=== PATIENT | female | born 1960 | race Caucasian/White ===

== ENCOUNTER 2017-06-10 08:03 | Day surgery (SDC) | payer OTHER ==
[~2017-06-10] VITALS: Ht 160 cm; Wt 108.9 kg
[~2017-06-10 08:03] MED LIST: ADVAIR 100/501 DISK IH; FLEXERIL10 MG PO; HYZAAR 100-21 TABLET PO; KLONOPIN0.5 M1 PO; MS CONTIN,ORAMO60 MG PO; NEURONTIN300 MG PO; PRAVACHOL20 MG PO; PROVENTIL,2.5 MG/3 M IH; ROXICODONE30 MG PO; VENTOLIN HFA18 GM IH
[2017-06-10 08:50] VITALS: BP 116/66
[2017-06-10 09:05] LABS: INTER. NORMALIZED RATIO 1.1
[2017-06-10 09:08] LABS: PTT 30.2 SEC (25-37)
[2017-06-10 14:35] VITALS: BP 124/61
[2017-06-10 15:25] VITALS: BP 109/53
[2017-06-10 17:40] VITALS: BP 117/67
== END 2017-06-10 18:10 | disposition home or self-care (01) ==
LOC: SDC 08:03
PROVIDERS: Thoracic Surgery (Cardiothoracic Vascular Surgery)
DX: C34.31 Malignant neoplasm of lower lobe, right bronchus or lung (principal); C77.1 Secondary and unspecified malignant neoplasm of intrathoracic lymph nodes; C78.1 Secondary malignant neoplasm of mediastinum; J43.9 Emphysema, unspecified; F17.210 Nicotine dependence, cigarettes, uncomplicated; G89.29 Other chronic pain; M54.9 Dorsalgia, unspecified; Z86.718 Personal history of other venous thrombosis and embolism; Z82.3 Family history of stroke; Z82.0 Family history of epilepsy and other diseases of the nervous system; Z83.49 Family history of other endocrine, nutritional and metabolic diseases; Z80.8 Family history of malignant neoplasm of other organs or systems
CPT/HCPCS: 85610; 85730; 86850; 86900; 86901; 88305; 88341 TC; 88342 TC; 93005; J0330; J0690; J1170

== ENCOUNTER 2017-06-20 15:26 | Emergency (ER) | payer OTHER ==
[~2017-06-20] VITALS: Ht 162.6 cm; Wt 109.9 kg
[2017-06-20 16:36] LABS: HEMOGLOBIN 12.5 G/DL (11.9-15.5); MCH 27.8 PG (29.0-34.0); MCHC 32.9 G/DL (30.0-36.0); MCV 84.4 FL (83-99); PLATELET COUNT 311 K/uL (156-360); WHITE BLOOD COUNT 10.7 K/uL (4.1-10.2)
[2017-06-20 16:45] LABS: CHLORIDE 95 mEq/L (99-109); POTASSIUM 3.8 mEq/L (3.7-5.4)
[2017-06-20 16:46] LABS: SODIUM 136 mEq/L (136-147)
[2017-06-20 16:47] LABS: GLUCOSE 96 mg/dL (70-99)
[2017-06-20 16:51] LABS: CREATININE 0.9 mg/dL (0.6-1.3); GFR ESTIMATE (CALCULATED) > 59 mL/min/
[2017-06-20 16:52] LABS: UREA NITROGEN (BUN) 15 mg/dL (9-23)
[2017-06-20] MEDS ORDERED: DUONEB 2.5-0.5 M3 ML AEROSOL (17:53)
[2017-06-20 19:29] VITALS: BP 155/70
== END 2017-06-20 19:32 | disposition home or self-care (01) ==
LOC: EME 15:26
PROVIDERS: Emergency Medicine Emergency Medical Services
DX: J44.1 Chronic obstructive pulmonary disease with (acute) exacerbation (principal); C34.91 Malignant neoplasm of unspecified part of right bronchus or lung; R09.02 Hypoxemia; G89.3 Neoplasm related pain (acute) (chronic); K21.9 Gastro-esophageal reflux disease without esophagitis; I10 Essential (primary) hypertension; Z79.891 Long term (current) use of opiate analgesic; F17.200 Nicotine dependence, unspecified, uncomplicated; Z88.1 Allergy status to other antibiotic agents
CPT/HCPCS: 71046; 80048; 85027; 85379; 94640; 99281; 99285; J2270

== ENCOUNTER 2017-06-22 13:57 | Inpatient (IN) | payer OTHER ==
[2017-06-22] VITALS (12 sets, daily range): BP systolic 120–153; BP diastolic 70–557
[~2017-06-22] VITALS: Ht 165.1 cm; Wt 123.3 kg
[~2017-06-22 13:57] MED LIST changes: +DUONEB 2.5-0.5 M3 ML AEROSOL
[2017-06-22 14:21] LABS: BASOPHIL (%) 0.7 % (0-1); BASOPHIL COUNT 0.1 K/uL (0-0.1); EOSINOPHIL (%) 0.9 % (0-5); EOSINOPHIL COUNT 0.1 K/uL (0-0.3); HEMATOCRIT 39.2 % (36.0-46.0); HEMOGLOBIN 12.2 G/DL (11.9-15.5); IMMATURE GRANULOCYTE (%) 4.4 % (0.0-0.7); LYMPHOCYTE (%) 27.7 % (15-42); LYMPHOCYTE COUNT 3.9 K/uL (1.0-2.8); MCH 27.4 PG (29.0-34.0); MCHC 31.1 G/DL (30.0-36.0); MCV 88.1 FL (83-99); MONOCYTE (%) 7.1 % (3-12); NEUTROPHIL (%) 59.2 % (45-76); NEUTROPHIL COUNT 8.3 K/uL (1.8-6.4); NRBC (%) 0.2 /100 WBC (0-0); PLATELET COUNT 373 K/uL (156-360); RBC DIS.WIDTH-CV 14.5 % (11.8-14.6); RBC DIS.WIDTH-SD 46.8 % (39-53); RED BLOOD COUNT 4.45 M/uL (3.80-5.20)
[2017-06-22 14:42] LABS: TROP-I INTERPRETATION NEGATIVE; TROPONIN-I 0.08 ng/mL (0.0-0.30)
[2017-06-22 15:08] LABS: ALBUMIN 3.2 g/dL (3.2-4.8); CHLORIDE 95 mEq/L (99-109); POTASSIUM 4.4 mEq/L (3.7-5.4); SODIUM 137 mEq/L (136-147)
[2017-06-22 15:10] LABS: TOTAL PROTEIN 5.4 g/dL (6.4-8.3)
[2017-06-22 15:12] LABS: GLUCOSE 174 mg/dL (70-99); TOTAL BILIRUBIN 0.8 mg/dL (0.0-1.0)
[2017-06-22 15:13] LABS: ALKALINE PHOSPHATASE 77 IU/L (3-129); SERUM ETHYL ALCOHOL < 10 mg/dL
[2017-06-22 15:14] LABS: GFR ESTIMATE (CALCULATED) 27 mL/min/
[2017-06-22 15:15] LABS: AST (GOT) 75 IU/L (2-34)
[2017-06-22 15:17] LABS: ALT (GPT) 52 IU/L (3-49); LIPASE 60 U/L (1.0-51.0); TOTAL CK 1126 IU/L (1-294); UREA NITROGEN (BUN) 31 mg/dL (9-23)
[2017-06-22 15:18] LABS: CREATINE KINASE 1126 IU/L (1-294)
[2017-06-22 15:23] LABS: CK-MB 9.8 ng/mL (0.0-4.9); CKMB RELATIVE INDEX 0.9 (0.0-3.9)
[2017-06-22 15:27] LABS: APPEARANCE TURBID ((CLEAR)); BILIRUBIN SMALL; BLOOD SMALL; GLUCOSE (STRIP) NEGATIVE; KETONES NEGATIVE; LEUKOCYTES NEGATIVE; NITRITE NEGATIVE; PROTEIN (STRIP) 100; SPECIFIC GRAVITY 1.023 (1.000-1.030)
[2017-06-22 15:33] LABS: COLOR DK YELLOW ((YELLOW))
[2017-06-22 15:36] LABS: AMPHETAMINE NEGATIVE (500 ng/mL); BARBITURATES NEGATIVE (200 ng/mL); BENZODIAZEPINES NEGATIVE (150 ng/mL); BUPRENORPHINE NEGATIVE (10 ng/mL); COCAINE NEGATIVE (150 ng/mL); METHADONE NEGATIVE (200 ng/mL); METHAMPHETAMINE NEGATIVE (500 ng/mL); OPIATES (MORPHINE) PRESUMPTIVE POSITIVE (100 ng/mL); OXYCODONE PRESUMPTIVE POSITIVE (100 ng/mL); PHENCYCLIDINE NEGATIVE (25 ng/mL); PROPOXYPHENE NEGATIVE (300 ng/mL); THC CANNABINOIDS PRESUMPTIVE POSITIVE (50 ng/mL); TRICYCLIC ANTIDEPRESSANTS PRESUMPTIVE POSITIVE (300 ng/mL)
[2017-06-22 16:25] LABS: BACTERIA 1+ /HPF; EPITHELIAL CELLS 1+ /HPF; MUCUS NONE SEEN /LPF; RED BLOOD CELLS RARE /HPF (0-5); UCUL ADDED? NO; WHITE BLOOD CELLS RARE /HPF (0-5)
[2017-06-22 16:26] LABS: AMORPHOUS URATES CRYSTALS 2+
[2017-06-22] MEDS ORDERED: ADVAIR HFA120 INHAL1 IH (18:05)
[2017-06-22] MEDS ORDERED: RAYOS5 MG PO (18:06)
[2017-06-22 20:54] LABS: BASE EXCESS -1.7 mEq/L (-3 to +3); BICARBONATE 24.3 mEq/L (22-26); CARBOXY HGB 2.7 % (0-5); DEVICE VENT; FI02 100 %; MECHANICAL RATE 18 resp/min; METHEMOGLOBIN 1.7 % (0-1.5); MODE AC; PCO2 45 mm Hg (35-45); PO2 98 mm Hg (80-100); SITE RR A-LINE; pH 7.34 (7.35-7.45)
[2017-06-22 20:55] LABS: PEEP 5 CM/H20; TIDAL VOLUME 450 ML; TOTAL RESP RATE 18 resp/min
[2017-06-22 21:16] LABS: INTER. NORMALIZED RATIO 1.1
[2017-06-22 21:18] LABS: PTT 27.2 SEC (25-37)
[2017-06-23] VITALS (9 sets, daily range): BP systolic 102–150; BP diastolic 70–96
[2017-06-23 01:06] LABS: BASOPHIL (%) 0.1 % (0-1); EOSINOPHIL (%) 0.1 % (0-5); HEMATOCRIT 39.5 % (36.0-46.0); HEMOGLOBIN 13.4 G/DL (11.9-15.5); IMMATURE GRANULOCYTE (%) 1.1 % (0.0-0.7); LYMPHOCYTE (%) 6.7 % (15-42); MCH 28.5 PG (29.0-34.0); MCHC 33.9 G/DL (30.0-36.0); MONOCYTE (%) 5.4 % (3-12); MONOCYTE COUNT 0.8 K/uL (0-0.8); NEUTROPHIL (%) 86.6 % (45-76); NEUTROPHIL COUNT 12.6 K/uL (1.8-6.4); PLATELET COUNT 358 K/uL (156-360); RBC DIS.WIDTH-CV 14.6 % (11.8-14.6); RBC DIS.WIDTH-SD 44.4 % (39-53); WHITE BLOOD COUNT 14.5 K/uL (4.1-10.2)
[2017-06-23 01:08] LABS: BASE EXCESS -0.9 mEq/L (-3 to +3); BICARBONATE 25.8 mEq/L (22-26); CARBOXY HGB 2.2 % (0-5); METHEMOGLOBIN 1.6 % (0-1.5); pH 7.32 (7.35-7.45)
[2017-06-23 01:08] LABS: INTER. NORMALIZED RATIO 1.1
[2017-06-23 01:09] LABS: COMMENTS - BLOOD GASES C+; DEVICE 840; FI02 90 %; MODE AC; PCO2 50 mm Hg (35-45); PO2 74 mm Hg (80-100); SITE A-LINE
[2017-06-23 01:10] LABS: PTT 26.1 SEC (25-37)
[2017-06-23 01:10] LABS: MECHANICAL RATE 18 resp/min; PEEP 5 CM/H20; TIDAL VOLUME 450 ML; TOTAL RESP RATE 38 resp/min
[2017-06-23 01:24] LABS: TROP-I INTERPRETATION NEGATIVE; TROPONIN-I 0.08 ng/mL (0.0-0.30)
[2017-06-23 01:34] LABS: CHLORIDE 100 mEq/L (99-109); POTASSIUM 4.4 mEq/L (3.7-5.4); SODIUM 136 mEq/L (136-147)
[2017-06-23 01:35] LABS: MAGNESIUM 2.1 mg/dL (1.3-2.7)
[2017-06-23 01:40] LABS: CREATININE 1.6 mg/dL (0.6-1.3); GFR ESTIMATE (CALCULATED) 35 mL/min/; PHOSPHORUS 5.8 mg/dL (2.5-4.9)
[2017-06-23 01:41] LABS: UREA NITROGEN (BUN) 32 mg/dL (9-23)
[2017-06-23 01:46] LABS: GLUCOSE 115 mg/dL (70-99)
[2017-06-23 06:09] LABS: BASE EXCESS -1.2 mEq/L (-3 to +3); BICARBONATE 25.7 mEq/L (22-26); CARBOXY HGB 2.2 % (0-5); METHEMOGLOBIN 1.6 % (0-1.5); PCO2 51 mm Hg (35-45); PO2 86 mm Hg (80-100); pH 7.31 (7.35-7.45)
[2017-06-23 06:10] LABS: COMMENTS - BLOOD GASES C+; DEVICE 840; FI02 70 %; MECHANICAL RATE 18 resp/min; MODE AC; PEEP 5 CM/H20; SITE A-LINE; TIDAL VOLUME 450 ML; TOTAL RESP RATE 18 resp/min
[2017-06-23 07:31] LABS: BASOPHIL (%) 0.2 % (0-1); EOSINOPHIL (%) 0 % (0-5); HEMATOCRIT 39.3 % (36.0-46.0); HEMOGLOBIN 12.6 G/DL (11.9-15.5); IMMATURE GRANULOCYTE (%) 1.1 % (0.0-0.7); LYMPHOCYTE (%) 6.2 % (15-42); LYMPHOCYTE COUNT 0.8 K/uL (1.0-2.8); MCH 26.8 PG (29.0-34.0); MCHC 32.1 G/DL (30.0-36.0); MCV 83.6 FL (83-99); MONOCYTE (%) 5.6 % (3-12); MONOCYTE COUNT 0.7 K/uL (0-0.8); NEUTROPHIL (%) 86.9 % (45-76); NEUTROPHIL COUNT 11.4 K/uL (1.8-6.4); PLATELET COUNT 270 K/uL (156-360); RBC DIS.WIDTH-CV 14.2 % (11.8-14.6); RBC DIS.WIDTH-SD 43.3 % (39-53); WHITE BLOOD COUNT 13.2 K/uL (4.1-10.2)
[2017-06-23 07:45] LABS: INTER. NORMALIZED RATIO 1.1
[2017-06-23 07:48] LABS: PTT 26.1 SEC (25-37)
[2017-06-23 07:51] LABS: TROP-I INTERPRETATION NEGATIVE; TROPONIN-I 0.05 ng/mL (0.0-0.30)
[2017-06-23 07:54] LABS: CHLORIDE 101 MEQ/L (99-109); CREATININE 1.5 MG/DL (0.6-1.3); GFR ESTIMATE (CALCULATED) 38 mL/min/; GLUCOSE 123 mg/dL (70-99); MAGNESIUM 1.8 mg/dl (1.3-2.7); SODIUM 136 MEQ/L (136-147); UREA NITROGEN (BUN) 34 mg/dL (9-23)
[2017-06-23 08:04] LABS: POTASSIUM 3.3 MEQ/L (3.7-5.4)
[2017-06-23 12:02] LABS: BASE EXCESS -1.6 mEq/L (-3 to +3); BICARBONATE 25.2 mEq/L (22-26); METHEMOGLOBIN 1.5 % (0-1.5); PCO2 50 mm Hg (35-45); PO2 145 mm Hg (80-100); SITE A-LINE; pH 7.31 (7.35-7.45)
[2017-06-23 12:03] LABS: COMMENTS - BLOOD GASES +C; DEVICE PB840; FI02 80 %; MECHANICAL RATE 18 resp/min; MODE AC; PEEP 8 CM/H20; TIDAL VOLUME 450 ML; TOTAL RESP RATE 18 resp/min
[2017-06-23 12:39] LABS: BASOPHIL (%) 0.2 % (0-1); EOSINOPHIL (%) 0 % (0-5); HEMATOCRIT 37.1 % (36.0-46.0); HEMOGLOBIN 12.2 G/DL (11.9-15.5); IMMATURE GRANULOCYTE (%) 0.8 % (0.0-0.7); LYMPHOCYTE (%) 5.4 % (15-42); LYMPHOCYTE COUNT 0.6 K/uL (1.0-2.8); MCH 27.6 PG (29.0-34.0); MCHC 32.9 G/DL (30.0-36.0); MCV 83.9 FL (83-99); MONOCYTE (%) 4.9 % (3-12); MONOCYTE COUNT 0.6 K/uL (0-0.8); NEUTROPHIL (%) 88.7 % (45-76); NEUTROPHIL COUNT 10.3 K/uL (1.8-6.4); NRBC (%) 0.3 /100 WBC (0-0); PLATELET COUNT 242 K/uL (156-360); RBC DIS.WIDTH-CV 14.5 % (11.8-14.6); RBC DIS.WIDTH-SD 43.8 % (39-53); RED BLOOD COUNT 4.42 M/uL (3.80-5.20); WHITE BLOOD COUNT 11.7 K/uL (4.1-10.2)
[2017-06-23 12:52] LABS: INTER. NORMALIZED RATIO 1.1
[2017-06-23 12:54] LABS: PTT 24.4 SEC (25-37)
[2017-06-23 13:04] LABS: TROP-I INTERPRETATION NEGATIVE; TROPONIN-I 0.03 ng/mL (0.0-0.30)
[2017-06-23 13:21] LABS: CHLORIDE 101 MEQ/L (99-109); CREATININE 1.3 MG/DL (0.6-1.3); GFR ESTIMATE (CALCULATED) 45 mL/min/; GLUCOSE 117 mg/dL (70-99); MAGNESIUM 1.8 mg/dl (1.3-2.7); PHOSPHORUS 5.1 mg/dL (2.5-4.9); POTASSIUM 3.4 MEQ/L (3.7-5.4); SODIUM 138 MEQ/L (136-147); UREA NITROGEN (BUN) 35 mg/dL (9-23)
[2017-06-23 13:29] LABS: BASE EXCESS -2.2 mEq/L (-3 to +3); BICARBONATE 20.6 mEq/L (22-26); CARBOXY HGB 1.8 % (0-5); METHEMOGLOBIN 1.6 % (0-1.5)
[2017-06-23 13:30] LABS: COMMENTS - BLOOD GASES +C; DEVICE PB840; FI02 80 %; INSPIRATION TIME 0.8 seconds; MECHANICAL RATE 34 resp/min; MODE ACVC+; PCO2 29 mm Hg (35-45); PEEP 8 CM/H20; PO2 68 mm Hg (80-100); SITE A-LINE; TIDAL VOLUME 450 ML; TOTAL RESP RATE 34 resp/min; pH 7.46 (7.35-7.45)
[2017-06-23 18:50] LABS: BASOPHIL (%) 0.1 % (0-1); EOSINOPHIL (%) 0 % (0-5); HEMATOCRIT 39.5 % (36.0-46.0); HEMOGLOBIN 12.7 G/DL (11.9-15.5); LYMPHOCYTE (%) 5.7 % (15-42); LYMPHOCYTE COUNT 1.1 K/uL (1.0-2.8); MCHC 32.2 G/DL (30.0-36.0); MCV 83.9 FL (83-99); MONOCYTE COUNT 0.7 K/uL (0-0.8); NEUTROPHIL (%) 89.2 % (45-76); NEUTROPHIL COUNT 16.6 K/uL (1.8-6.4); RBC DIS.WIDTH-CV 14.4 % (11.8-14.6); RBC DIS.WIDTH-SD 43.6 % (39-53); RED BLOOD COUNT 4.71 M/uL (3.80-5.20); WHITE BLOOD COUNT 18.6 K/uL (4.1-10.2)
[2017-06-23 18:59] LABS: PLATELET COUNT 328 K/uL (156-360)
[2017-06-23 19:00] LABS: INTER. NORMALIZED RATIO 1.1
[2017-06-23 19:10] LABS: BASE EXCESS -5.2 mEq/L (-3 to +3); BICARBONATE 20.6 mEq/L (22-26); CARBOXY HGB 2.2 % (0-5); METHEMOGLOBIN 1.4 % (0-1.5); PO2 78 mm Hg (80-100)
[2017-06-23 19:10] LABS: TROP-I INTERPRETATION NEGATIVE; TROPONIN-I 0.02 ng/mL (0.0-0.30)
[2017-06-23 19:11] LABS: COMMENTS - BLOOD GASES A+C+; DEVICE 840 PB; FI02 80 %; PCO2 40 mm Hg (35-45); SITE LR; pH 7.32 (7.35-7.45)
[2017-06-23 19:12] LABS: INSPIRATION TIME 0.8 seconds; MECHANICAL RATE 34 resp/min; MODE AC VC+; PEEP 8 CM/H20; TIDAL VOLUME 450 ML; TOTAL RESP RATE 40 resp/min
[2017-06-23 19:12] LABS: CHLORIDE 103 MEQ/L (99-109); CREATININE 1.4 MG/DL (0.6-1.3); GFR ESTIMATE (CALCULATED) 41 mL/min/; GLUCOSE 62 mg/dL (70-99); MAGNESIUM 1.8 mg/dl (1.3-2.7); PHOSPHORUS 5.3 mg/dL (2.5-4.9); POTASSIUM 4.2 MEQ/L (3.7-5.4); SODIUM 137 MEQ/L (136-147); UREA NITROGEN (BUN) 34 mg/dL (9-23)
[2017-06-24 01:00] VITALS: BP 102/61
[2017-06-24 01:26] LABS: BASOPHIL (%) 0.1 % (0-1); EOSINOPHIL (%) 0.1 % (0-5); HEMATOCRIT 39.8 % (36.0-46.0); HEMOGLOBIN 13.1 G/DL (11.9-15.5); IMMATURE GRANULOCYTE (%) 1.4 % (0.0-0.7); LYMPHOCYTE (%) 4.5 % (15-42); LYMPHOCYTE COUNT 0.9 K/uL (1.0-2.8); MCH 27.5 PG (29.0-34.0); MCHC 32.9 G/DL (30.0-36.0); MCV 83.4 FL (83-99); MONOCYTE COUNT 0.8 K/uL (0-0.8); NEUTROPHIL (%) 89.9 % (45-76); NEUTROPHIL COUNT 17.9 K/uL (1.8-6.4); PLATELET COUNT 287 K/uL (156-360); RBC DIS.WIDTH-CV 14.4 % (11.8-14.6); RBC DIS.WIDTH-SD 43.5 % (39-53); RED BLOOD COUNT 4.77 M/uL (3.80-5.20); WHITE BLOOD COUNT 19.9 K/uL (4.1-10.2)
[2017-06-24 01:36] LABS: CHLORIDE 104 mEq/L (99-109); POTASSIUM 4.4 mEq/L (3.7-5.4); SODIUM 140 mEq/L (136-147)
[2017-06-24 01:38] LABS: GLUCOSE 73 mg/dL (70-99)
[2017-06-24 01:42] LABS: CREATININE 1.4 mg/dL (0.6-1.3); GFR ESTIMATE (CALCULATED) 41 mL/min/; PHOSPHORUS 5.4 mg/dL (2.5-4.9)
[2017-06-24 01:43] LABS: MAGNESIUM 1.7 mg/dL (1.3-2.7); UREA NITROGEN (BUN) 41 mg/dL (9-23)
[2017-06-24 01:46] LABS: TROP-I INTERPRETATION NEGATIVE; TROPONIN-I 0.02 ng/mL (0.0-0.30)
[2017-06-24 01:48] LABS: INTER. NORMALIZED RATIO 1.1
[2017-06-24 01:50] LABS: BASE EXCESS -4.2 mEq/L (-3 to +3); CARBOXY HGB 2.2 % (0-5); COMMENTS - BLOOD GASES C+; METHEMOGLOBIN 1.5 % (0-1.5); PCO2 38 mm Hg (35-45); PO2 77 mm Hg (80-100); SITE A-LINE; pH 7.35 (7.35-7.45)
[2017-06-24 01:50] LABS: PTT 27.1 SEC (25-37)
[2017-06-24 01:51] LABS: DEVICE 840; FI02 80 %; INSPIRATION TIME 0.8 seconds; MECHANICAL RATE 34 resp/min; MODE AC/VC+; PEEP 8 CM/H20; TIDAL VOLUME 450 ML; TOTAL RESP RATE 41 resp/min
[2017-06-24 06:01] LABS: BASE EXCESS -3.4 mEq/L (-3 to +3); BICARBONATE 19.9 mEq/L (22-26); CARBOXY HGB 1.8 % (0-5); METHEMOGLOBIN 1.6 % (0-1.5); pH 7.43 (7.35-7.45)
[2017-06-24 06:02] LABS: COMMENTS - BLOOD GASES C+; DEVICE VENT; FI02 70 %; INSPIRATION TIME 0.8 seconds; MECHANICAL RATE 24 resp/min; MODE A/CVC+; PCO2 30 mm Hg (35-45); PEEP 8 CM/H20; PO2 58 mm Hg (80-100); TIDAL VOLUME 450 ML; TOTAL RESP RATE 24 resp/min
[2017-06-24 06:23] LABS: BASOPHIL (%) 0.1 % (0-1); EOSINOPHIL (%) 0 % (0-5); HEMATOCRIT 37.4 % (36.0-46.0); HEMOGLOBIN 12.2 G/DL (11.9-15.5); IMMATURE GRANULOCYTE (%) 0.8 % (0.0-0.7); LYMPHOCYTE (%) 5.7 % (15-42); LYMPHOCYTE COUNT 0.8 K/uL (1.0-2.8); MCH 26.9 PG (29.0-34.0); MCHC 32.6 G/DL (30.0-36.0); MCV 82.4 FL (83-99); MONOCYTE COUNT 0.4 K/uL (0-0.8); NEUTROPHIL (%) 90.4 % (45-76); NEUTROPHIL COUNT 12.9 K/uL (1.8-6.4); PLATELET COUNT 262 K/uL (156-360); RBC DIS.WIDTH-CV 14.5 % (11.8-14.6); RBC DIS.WIDTH-SD 42.3 % (39-53); RED BLOOD COUNT 4.54 M/uL (3.80-5.20); WHITE BLOOD COUNT 14.2 K/uL (4.1-10.2)
[2017-06-24 06:25] LABS: INTER. NORMALIZED RATIO 1.2
[2017-06-24 06:28] LABS: PTT 25.8 SEC (25-37)
[2017-06-24 06:41] LABS: CHLORIDE 103 MEQ/L (99-109); CREATININE 1.3 MG/DL (0.6-1.3); GFR ESTIMATE (CALCULATED) 45 mL/min/; MAGNESIUM 1.8 mg/dl (1.3-2.7); PHOSPHORUS 4.2 mg/dL (2.5-4.9); SODIUM 138 MEQ/L (136-147); UREA NITROGEN (BUN) 41 mg/dL (9-23)
[2017-06-24 06:43] LABS: TROP-I INTERPRETATION NEGATIVE; TROPONIN-I 0.01 ng/mL (0.0-0.30)
[2017-06-24 06:47] LABS: GLUCOSE 153 mg/dL (70-99); POTASSIUM 2.9 MEQ/L (3.7-5.4)
[2017-06-24 11:25] VITALS: BP 77/44
[2017-06-24 11:45] LABS: BASOPHIL (%) 0.1 % (0-1); EOSINOPHIL (%) 0 % (0-5); HEMATOCRIT 37.4 % (36.0-46.0); HEMOGLOBIN 12.2 G/DL (11.9-15.5); IMMATURE GRANULOCYTE (%) 0.8 % (0.0-0.7); LYMPHOCYTE (%) 4.6 % (15-42); LYMPHOCYTE COUNT 0.7 K/uL (1.0-2.8); MCH 26.9 PG (29.0-34.0); MCHC 32.6 G/DL (30.0-36.0); MCV 82.4 FL (83-99); MONOCYTE (%) 3.8 % (3-12); MONOCYTE COUNT 0.6 K/uL (0-0.8); NEUTROPHIL (%) 90.7 % (45-76); NEUTROPHIL COUNT 13.6 K/uL (1.8-6.4); PLATELET COUNT 302 K/uL (156-360); RBC DIS.WIDTH-CV 14.6 % (11.8-14.6); RBC DIS.WIDTH-SD 42.6 % (39-53); RED BLOOD COUNT 4.54 M/uL (3.80-5.20)
[2017-06-24 11:50] LABS: BICARBONATE 19.5 mEq/L (22-26); CARBOXY HGB 1.6 % (0-5); METHEMOGLOBIN 1.6 % (0-1.5); PCO2 30 mm Hg (35-45); PO2 88 mm Hg (80-100); pH 7.42 (7.35-7.45)
[2017-06-24 11:51] LABS: COMMENTS - BLOOD GASES C+; DEVICE 840; FI02 100 %; INSPIRATION TIME 0.8 seconds; MECHANICAL RATE 35 resp/min; MODE A/C; PEEP 12 CM/H20; SITE LEFTALINE; TIDAL VOLUME 400 ML; TOTAL RESP RATE 40 resp/min
[2017-06-24 12:01] LABS: INTER. NORMALIZED RATIO 1.2
[2017-06-24 12:04] LABS: PTT 22.9 SEC (25-37); TROP-I INTERPRETATION NEGATIVE; TROPONIN-I 0.02 ng/mL (0.0-0.30)
[2017-06-24 12:23] LABS: CHLORIDE 105 MEQ/L (99-109); CREATININE 1.4 MG/DL (0.6-1.3); GFR ESTIMATE (CALCULATED) 41 mL/min/; GLUCOSE 139 mg/dL (70-99); MAGNESIUM 1.9 mg/dl (1.3-2.7); PHOSPHORUS 4.7 mg/dL (2.5-4.9); SODIUM 139 MEQ/L (136-147); UREA NITROGEN (BUN) 44 mg/dL (9-23)
[2017-06-24 12:39] LABS: POTASSIUM 3.5 MEQ/L (3.7-5.4)
[2017-06-24 14:00] VITALS: BP 91/55
== END 2017-06-24 20:45 | DRG 91 ==
LOC: EME 13:57 → 4WEST 16:46 → EDOF 16:46 → ENRESERV 16:48 → 4WEST 17:41
PROVIDERS: Emergency Medicine; Internal Medicine
PROC: 5A1945Z Respiratory Ventilation, 24-96 Consecutive Hours (ICD-10-PCS; principal; 2017-06-22)
PROC: 02HV33Z Insertion of Infusion Device into Superior Vena Cava, Percutaneous Approach (ICD-10-PCS; principal; 2017-06-22)
PROC: 02HV33Z Insertion of Infusion Device into Superior Vena Cava, Percutaneous Approach (ICD-10-PCS; 2017-06-23)
DX: G93.1 Anoxic brain damage, not elsewhere classified (principal); I46.9 Cardiac arrest, cause unspecified; R40.20 Unspecified coma; J96.01 Acute respiratory failure with hypoxia; N17.0 Acute kidney failure with tubular necrosis; C34.91 Malignant neoplasm of unspecified part of right bronchus or lung; C77.9 Secondary and unspecified malignant neoplasm of lymph node, unspecified; T82.524A Displacement of infusion catheter, initial encounter; Y84.8 Other medical procedures as the cause of abnormal reaction of the patient, or of later complication, without mention of misadventure at the time of the procedure; G25.3 Myoclonus; I95.9 Hypotension, unspecified; Z66 Do not resuscitate; Z51.5 Encounter for palliative care; E87.2 Acidosis; M62.82 Rhabdomyolysis; J44.9 Chronic obstructive pulmonary disease, unspecified; I10 Essential (primary) hypertension; E66.01 Morbid (severe) obesity due to excess calories; Z68.41 Body mass index [BMI] 40.0-44.9, adult; K21.9 Gastro-esophageal reflux disease without esophagitis; F17.210 Nicotine dependence, cigarettes, uncomplicated; Z86.718 Personal history of other venous thrombosis and embolism; Z80.8 Family history of malignant neoplasm of other organs or systems; Z82.0 Family history of epilepsy and other diseases of the nervous system; Z82.3 Family history of stroke
CPT/HCPCS: 36600; 36620; 70450; 71045; 71046; 71275; 80048; 80048 91; 80053; 81003; 82330; 82550; 82553; 82803; 82948; 83605; 83690; 83735; 83880; 84100; 84484; 84999; 85025; 85025 91; 85027; 85379; 85610; 85730; 86850; 86900; 86901; 87040; 87070; 87205; 87641; 93005; 94002; 94003; 94640; 94640 76; 94760; 95819; 99202; 99281; 99285; C1751; C9113; G0480; J2060; J2250; J2270; J7030; J7042; J7050; S0028